=== PATIENT | female | born 1980 | race American Indian/Alaskan Native ===

== ENCOUNTER 2017-03-31 10:48 | Emergency (ER) | payer OTHER | END 2017-03-31 12:06 | disposition home or self-care (01) | LOC: H.EROB2 10:48 | DX: O47.03 False labor before 37 completed weeks of gestation, third trimester (principal); Z3A.35 35 weeks gestation of pregnancy; O24.410 Gestational diabetes mellitus in pregnancy, diet controlled; Z86.2 Personal history of diseases of the blood and blood-forming organs and certain disorders involving the immune mechanism; B20 Human immunodeficiency virus [HIV] disease ==

== ENCOUNTER 2017-04-02 11:02 | Emergency (ER) | payer OTHER ==
--- NOTE | 2017-04-02 15:04 | OBHP ---
Datetime: 04/02/2017 14:41 IP Adm Impression: , intrauterine IP Admit Plan: Observation/Evaluation Admit Comment, IP Provider: 37 yo at 35+5 wks sent from [facility] for further monitoring for non-re active NST, BPP 04/06. Pt reports feeling ctxns sometimes, denies LOF, VB and reports FM. This pregna ncy is complicated by positive HIV. Pt's reports that she sees ID, Dr. Kirsten Lao. Pt's reports that she takes meds but doesn't know the meds she is on. This pt also has GD M. Pt's also reports that she has a glucometer at home but is having difficulty w/ it. Pt r eceives her PN care w/ [facility] in [place], [place]. Pt speaks Khmer and a little Palauan. PMH: HIV positive PSH: None Meds: PNVs, meds for HIV (?) All: NKDA Soc hx: Pt denies tobacco, alcohol, and illicit drug use Fam hx: N/c Hasher Operator hx: Monthly periods, LSIL pap on 08/2016 POb hx: 07/2006 FT VD, male in [facility] 2007 TOP at 4-6 wks PE: AFVSS Gen'l Pt appears confortable lying in bed Abd: soft, NT, gravid Ext: NT EFM: as above VE: Deferred A/P: 37 yo at 35+5 wks w/ BPP 04/06, non-reactive NST at [facility], NST reactive here Pt discharged home, has a f/u appoint at the clinic at 04/06/2017. Pt to continue twice weekly an tenatal testing. Rec that her bring his glucometer to the clinic. Extremities - PN: Normal General - PN: Normal FHR - Baseline A Provider: 130s Membranes, Provider: Intact EGA AdmitDate IP: 35.5 Vital Signs Provider: Reviewed IP Chief Complaint: evaluation NICHD Variability Prov Fetus A: Moderate 6-25bpm NICHD Accel Fetus A IP Provider: [id number] FHR Category Provider Fetus A: Category I NICHD Decel Fetus A IP Provider: None Datetime: 03/31/2017 12:09 Pelvic Type - PN: Adequate Abdomen - PN: Normal Back - PN: Normal Breast - PN: Not Done Lungs - PN: Normal Heart - PN: Normal Thyroid - PN: Normal Neurologic - PN: Normal HEENT - PN: Normal Gestation - Est Wks by US: 35.5wks Genitourinary Exam: Normal DTRs - PN: Normal
[2017-04-02 19:49] VITALS: BP 101/69; PULSE 70; RESP 18; TEMP 98.1; O2SAT 100
--- NOTE | 2017-04-03 11:46 | OBDCSUM ---
Datetime: 04/02/2017 13:49 Follow up in weeks, Provider: 4 days Discharge Diagnosis Prov Other: Non-reactive NST at the office
== END 2017-04-02 13:50 | disposition home or self-care (01) ==
LOC: H.EROB2 11:02
DX: O47.03 False labor before 37 completed weeks of gestation, third trimester (principal); Z3A.35 35 weeks gestation of pregnancy; O26.93 Pregnancy related conditions, unspecified, third trimester; Z21 Asymptomatic human immunodeficiency virus [HIV] infection status

== ENCOUNTER 2017-04-06 11:26 | Emergency (ER) | payer OTHER ==
[2017-04-06] MEDS ORDERED: Lactated Ringer's 1,000 ML IV ONE (11:30)
[2017-04-06 14:05] VITALS: BMI 22.8
--- NOTE | 2017-04-06 14:07 | OBDCSUM ---
Datetime: 04/06/2017 14:05 Discharged to, Provider: Home Follow up at, Provider: [facility] Disch Instr Activity: Normal activity Disch Instr Diet: Regular Discharge Instructions, Provider: Routine instructions given Discharge Diagnosis, Provider: False Labor - Undelivered Follow up in weeks, Provider: Mar 9 6am Disch Referrals: None Contraception discussed, Prov: Yes Discharge Comment, Provider: Scheduled for delivery at high risk facility [facility] tomorrow Discharge Diagnosis Prov Other: IUGR Datetime: 04/02/2017 13:49 Discharge Instructions, Provider: Routine instructions given Contraception discussed, Prov: Yes Discharge Diagnosis Prov Other: Non reactive MST at office
--- NOTE | 2017-04-06 14:46 | OBHP ---
Datetime: 04/06/2017 12:15 IP Adm Impression: , intrauterine ; No Active Labor IP Adm Impression Other: IUGR (Annotations: Data stored by CPN on behalf of user) IP Admit Plan: Observation/Evaluation Admit Comment, IP Provider: IUP at 36+w sent from [facility] for IUGR/delivery. +FM; no CTX; no VB ; no HOLLAND; no visual dist care: [facility] / Dr Jeffery - chart rev'd...requested recent lab wo rk PMH: HIV+ diagnosed Aug 2016 followed by [facility] Meds: Unknown retroviral meds PSH: denies NKA POBH: x 1/spont Ab x 1 PSoH: Denies smoiking/ETOH/Drugs lives with +child/only speaks south african (info obtaine with tr anslating machine) A: IUP at 36+ weeks HIV+ (?recent viral load) IUGR PLAN: obtain complete records/labs, [facility] and neonatology consultations...plan for delivery Pelvic Type - PN: Adequate Extremities - PN: Normal Abdomen - PN: Normal Back - PN: Normal Breast - PN: Not Done Lungs - PN: Normal Heart - PN: Normal Thyroid - PN: Normal Neurologic - PN: Normal HEENT - PN: Normal General - PN: Abnormal Presentation-Admit: Vertex FHR - Baseline A Provider: 140 Membranes, Provider: Intact Contraction Comments Provider: occ Comments, ACOG Physical Exam: ROS: General: no weakness; no fatigue HEENT: no HOLLAND; no visual dist CV: no palpitations; no no CP GI: no N/V no diarhea No epigastric pain; non radiating : no F/U/D MS: No joint pain Pool Provider: Negative IP Hx Assessment: The History has been Reviewed and is Current EGA AdmitDate IP: 36.2 Vital Signs Provider: Reviewed; Within Normal Limits IP Chief Complaint: Other NICHD Variability Prov Fetus A: Moderate 6-25bpm NICHD Accel Fetus A IP Provider: [id number] FHR Category Provider Fetus A: Category I NICHD Decel Fetus A IP Provider: None Dilatation, Provider: 0 Effacement, Provider: 0 Genitourinary Exam: Normal DTRs - PN: Normal
--- NOTE | 2017-04-06 14:48 | OBDCSUM ---
Datetime: 04/06/2017 14:14 Discharged to, Provider: Home Follow up at, Provider: [facility] Disch Instr Activity: Normal activity Disch Instr Diet: Regular Discharge Diet restrict Prov: npo after midnight, pt for c/s at [facility] in the morning per dr arreaga/dr rushing Discharge Instructions, Provider: Routine instructions given Discharge Time: 04/06/2017 14:15 Follow up in weeks, Provider: 04/07/17 Disch Referrals: None Discharge Diagnosis Prov Other: IUGR/HIV+ Datetime: 04/06/2017 14:05 Discharged to, Provider: Home Follow up at, Provider: [facility] Disch Instr Activity: Normal activity Disch Instr Diet: Regular Discharge Instructions, Provider: Routine instructions given Discharge Diagnosis, Provider: False Labor - Undelivered Follow up in weeks, Provider: Mar 9 6am Disch Referrals: None Contraception discussed, Prov: Yes Discharge Comment, Provider: Scheduled for delivery at high risk facility [facility] tomorrow Discharge Diagnosis Prov Other: IUGR Datetime: 04/02/2017 13:49 Discharge Instructions, Provider: Routine instructions given Contraception discussed, Prov: Yes Discharge Diagnosis Prov Other: Non reactive MST at office
--- NOTE | 2017-04-06 14:48 | OBHP ---
Datetime: 04/06/2017 14:15 Admit Comment, IP Provider: MFM - will need AZT IV prior to delivery Neonatology/nursery - attempted to obtain meds but unable to obtain from /[facility]. Spoke with pt and Dr Berry...will discharge home and follow up tmrw 6am [facility] for delivery. Her and her understood. Address and records given to pt/
[2017-04-06 19:16] VITALS: BP 93/68; PULSE 64; TEMP 98
== END 2017-04-06 14:30 | disposition home or self-care (01) ==
LOC: H.EROB2 11:26
DX: O36.5931 Maternal care for other known or suspected poor fetal growth, third trimester, fetus 1 (principal); Z3A.36 36 weeks gestation of pregnancy; O26.93 Pregnancy related conditions, unspecified, third trimester; Z21 Asymptomatic human immunodeficiency virus [HIV] infection status; O98.713 Human immunodeficiency virus [HIV] disease complicating pregnancy, third trimester